=== PATIENT | female | born 1990 ===

== ENCOUNTER 2017-08-06 18:49 | Emergency (ER) | payer OTHER ==
[2017-08-06 19:16] VITALS: PULSE 82; RESP 18; TEMP 98.2; O2SAT 98
--- NOTE | 2017-08-06 20:33 | ED PDOC ---
HPI: Back Time Seen by Provider: 08/06/17 19:17 Chief Complaint (Nursing): Back Pain Chief Complaint (Provider): Back Pain History Per: Patient History/Exam Limitations: no limitations Onset/Duration Of Symptoms: Days (x7) Current Symptoms Are (Timing): Still Present Additional Complaint(s): 27 year old female presents to the emergency department with complaints of non- radiating lower back pain, onset one week. She states that prior to onset, she was doing a lot of heavy lifting. The patient reports that ibuprofen was initially alleviating the pain, but as of this morning, the pain was unresolved with it. Also as of today, she notes that the pain began radiating down her right leg. Denies blunt trauma, incontinence, abdominal pain, pelvic pain, dysuria, hematuria, and a history of back problems. PMD: none provided Past Medical History Reviewed: Historical Data, Nursing Documentation, Vital Signs Vital Signs: Last Vital Signs Temp 98.2 F 08/06/17 19:10 Pulse 82 08/06/17 19:10 Resp 18 08/06/17 19:10 BP Pulse Ox 98 08/06/17 19:10 - Medical History PMH: Asthma - Surgical History Surgical History: No Surg Hx - Family History Family History: States: Unknown Family Hx - Social History Current smoker - smoking cessation education provided: No Alcohol: None Drugs: Denies - Home Medications Home Medications: Ambulatory Orders Medication Instructions Recorded Cyclobenzaprine [Cyclobenzaprine 10 mg PO Q8 PRN #14 tab 08/06/17 HCl] Naproxen [Naprosyn] 500 mg PO BID PRN #14 tab 08/06/17 - Allergies Allergies/Adverse Reactions: Allergies Allergy/AdvReac Type Severity Reaction Status Date / Time No Known Allergies Allergy Verified 08/06/17 19:16 Review of Systems ROS Statement: Except As Marked, All Systems Reviewed And Found Negative Gastrointestinal: Negative for: Abdominal Pain Genitourinary Female: Negative for: Dysuria, Incontinence, Hematuria, Pelvic Pain Musculoskeletal: Positive for: Back Pain (lower, now radiating down right leg), Leg Pain (right leg) Physical Exam - Reviewed Nursing Documentation Reviewed: Yes Vital Signs Reviewed: Yes - Physical Exam Appears: Positive for: In Acute Distress (moderate painful) Gastrointestinal/Abdominal: Positive for: Normal Exam, Soft. Negative for: Tenderness Back: Positive for: Normal Inspection, Other (right sided para lumbar tenderness ). Negative for: L CVA Tenderness Extremity: Positive for: Other (right sided straight leg raise positive at 20 degrees) - ECG O2 Sat by Pulse Oximetry: 98 (RA) Pulse Ox Interpretation: Normal - Radiology X-Ray: Interpreted by Me (LS spine x-ray) X-Ray Interpretation: No Acute Disease Medical Decision Making Medical Decision Making: Initial Impression: lower back pain Time: 19:31 Initial Plan: --ED Urine --Toradol 30mg IM --Valium 10mg PO --LS Spine AP/ Lat On re-evaluation, pt. reports moderate analgesia but pain is still present. Scribe Attestation: Documented by Meli Colvin, acting as a scribe for Rashawn Torres PA-C Provider Scribe Attestation: All medical entries made by the Scribe were at my direction and personally dictated by me. I have reviewed the chart and agree that the record accurately reflects my personal performance of the history, physical exam, medical decision making, and the department course for this patient. I have also personally directed, reviewed, and agree with the discharge instructions and disposition. Disposition - Clinical Impression Clinical Impression: Low back pain - Patient ED Disposition Is Patient to be Admitted: No - Disposition Referrals: [facility] [place] [Outside] [facility] [Outside] Disposition: Routine/Home Disposition Time: 21:00 Condition: IMPROVED Additional Instructions: Follow up with [facility] for further evaluation Return to ED immediately if symptoms worsen Prescriptions: Cyclobenzaprine [Cyclobenzaprine HCl] 10 mg PO Q8 PRN #14 tab PRN Reason: Muscle Spasm Naproxen [Naprosyn] 500 mg PO BID PRN #14 tab PRN Reason: Pain Instructions: Low Back Pain (DC) Forms: [facility] ([place]), [facility] ED School/Work Excuse Print Language: SA[place] T[place]
--- NOTE | 2017-08-07 07:59 | RAD ---
PROCEDURE: Radiographs of the Lumbar Spine. HISTORY: pain COMPARISON: No prior. FINDINGS: BONES: Normal alignment. No listhesis. No fracture. DISC SPACES: Unremarkable. OTHER FINDINGS: None. IMPRESSION: Unremarkable radiographs of the lumbar spine.
== END 2017-08-06 21:00 | disposition home or self-care (01) ==
LOC: H.ER 18:49
DX: M54.5 Low back pain (principal); J45.909 Unspecified asthma, uncomplicated
CPT/HCPCS: 72100; 81025; 96372; 99283; J1885

== ENCOUNTER 2017-08-14 13:13 | Emergency (ER) | payer OTHER ==
[2017-08-14 13:38] VITALS: BP 107/71; PULSE 102; RESP 20; TEMP 97; O2SAT 97
[2017-08-14] MEDS ORDERED: Lidocaine 5% Patch TD STA (14:45)
[2017-08-14] MEDS ORDERED: Oxycodone/Acetaminophen 5/325 mg Tab PO STA (14:45)
[2017-08-14 15:02] LABS: SQUAMOUS EPITHIAL 2 /hpf (0-5); URINE BACTERIA RARE (<OCC); URINE BILIRUBIN NEGATIVE (NEGATIVE); URINE BLOOD LARGE (NEGATIVE); URINE CLARITY SLIGHTY-CLOUDY (Clear); URINE COLOR YELLOW (YELLOW); URINE GLUCOSE (UA) NEG (Normal); URINE LEUKOCYTE ESTERASE NEG Leu/uL (Negative); URINE PROTEIN NEGATIVE (NEGATIVE); URINE UROBILINOGEN 0.2-1.0 mg/dL (0.2-1.0)
[2017-08-14] MEDS ORDERED: Lidocaine 5% Patch TD ONE (15:06)
--- NOTE | 2017-08-14 15:20 | ED PDOC ---
HPI: Back Time Seen by Provider: 08/14/17 13:58 Chief Complaint (Nursing): Back Pain History Per: Patient Additional Complaint(s): Pt. states for 2 weeks she's had progressively worsening lower back pain which radiates slightly into R buttock area. States symptoms began after lifting her daughter and a heavy bag of groceries. Pt. states she was seen in ED last week and prescribed Naproxen/Flexeril which has not provided any relief. Further states today she was attempting to go to the bathroom to urinate but was unable to hold her urine because she had to walk slowly to the bathroom. Denies dysuria , frequency, hematuria, trauma, saddle paresthesias, N/V/D, fever. Past Medical History Reviewed: Historical Data, Nursing Documentation, Vital Signs Vital Signs: Last Vital Signs Temp 97 F L 08/14/17 13:35 Pulse 102 H 08/14/17 13:35 Resp 20 08/14/17 13:35 BP 107/71 08/14/17 13:35 Pulse Ox 97 08/14/17 13:35 - Medical History PMH: Asthma - Surgical History Surgical History: No Surg Hx - Family History Family History: States: No Known Family Hx - Home Medications Home Medications: Ambulatory Orders Medication Instructions Recorded Cyclobenzaprine [Cyclobenzaprine 10 mg PO Q8 PRN #14 tab 08/06/17 HCl] Naproxen [Naprosyn] 500 mg PO BID PRN #14 tab 08/06/17 Lidocaine 5% [Lidoderm] 1 ea TD DAILY PRN #10 patch 08/14/17 Meloxicam [Mobic] 1 - 2 tab PO DAILY PRN #14 tab 08/14/17 Methocarbamol [Robaxin] 1 tab PO TID PRN #15 tab 08/14/17 - Allergies Allergies/Adverse Reactions: Allergies Allergy/AdvReac Type Severity Reaction Status Date / Time No Known Allergies Allergy Verified 08/14/17 13:34 Review of Systems ROS Statement: Except As Marked, All Systems Reviewed And Found Negative Musculoskeletal: Positive for: Back Pain Physical Exam - Physical Exam Appears: Positive for: Non-toxic, In Acute Distress (moderate painful distress) Skin: Positive for: Normal Color, Warm. Negative for: Rash Eye Exam: Positive for: Normal appearance Cardiovascular/Chest: Positive for: Regular Rate, Rhythm Respiratory: Positive for: CNT, Normal Breath Sounds Pulses-Dorsalis Pedis (L): 2+ Pulses-Dorsalis Pedis (R): 2+ Gastrointestinal/Abdominal: Positive for: Normal Exam, Soft. Negative for: Tenderness Back: Positive for: Normal Inspection, Vertebral Tenderness (moderate lumbar tenderness). Negative for: L CVA Tenderness, R CVA Tenderness Extremity: Positive for: Other (SLR positive in R leg at 25-30 degrees). Negative for: Calf Tenderness (b/l) Neurologic/Psych: Positive for: Alert, Oriented, Gait (slow, steady, unassisted) - Laboratory Results Result Diagrams: 08/14/17 15:20 08/14/17 15:20 - ECG O2 Sat by Pulse Oximetry: 97 - Progress ED Course And Treament: Labs, morphine 4mg IV, zofran 4mg PO, valium 5mg PO, MRI LS spine ordered. Case d/w Dr. Lovell who agrees with care. 183 On re-evaluation, pt. sleeping comfortably. Easily arousable. States pt. has improved drastically but is still present. MRI: no acute fx, degenerative changes noted greatest on L5-S1 area Pt. searched [place] [employer] Aware which show no previous narcotic Rx's in the last 2 years. UA: large blood (pt. started her period yesterday evening) Disposition - Clinical Impression Clinical Impression: Low back pain - Patient ED Disposition Is Patient to be Admitted: No - Disposition Referrals: [facility] [Outside] [facility] [Outside] Disposition: Routine/Home Disposition Time: 18:38 Condition: IMPROVED Additional Instructions: Follow up with PMD for further evaluation Return to ED immediately if symptoms worsen Prescriptions: Lidocaine 5% [Lidoderm] 1 ea TD DAILY PRN #10 patch PRN Reason: pain Meloxicam [Mobic] 1 - 2 tab PO DAILY PRN #14 tab PRN Reason: Pain Methocarbamol [Robaxin] 1 tab PO TID PRN #15 tab PRN Reason: Muscle Spasm Instructions: Degenerative Disc Disease (DC), Low Back Pain (DC) Forms: [employer] ([place]), [facility] ED School/Work Excuse Print Language: SINHAL[place]
[2017-08-14 15:34] LABS: BASO # 0.1 K/uL (0.0-0.2); BASO % 1.1 % (0.0-2.0); EOS # 0.4 K/uL (0.0-0.7); EOS % 6.1 % (0.0-4.0); LYMPH # 2.2 K/uL (1.0-4.3); LYMPH % 32.4 % (20.0-40.0); MEAN CELL VOLUME 92.2 fl (81.0-99.0); MEAN CORPUSCULAR HEMOGLOBIN 31.5 pg (27.0-31.0); MEAN CORPUSCULAR HGB CONC 34.1 g/dL (33.0-37.0); MEAN PLATELET VOLUME 8.6 fl (7.2-11.7); MONO # 0.5 K/uL (0.0-0.8); NEUT # 3.6 K/uL (1.8-7.0); NEUT % 52.4 % (50.0-75.0); RBC 3.83 Mil/uL (3.80-5.20); RED CELL DISTRIBUTION WIDTH 13.1 % (11.5-14.5); WHITE BLOOD COUNT 6.8 K/uL (4.8-10.8)
[2017-08-14 15:40] LABS: ALB/GLOB RATIO 1.3 (1.0-2.1); ALBUMIN 4.2 g/dL (3.5-5.0); ALT/SGPT 28 U/L (9-52); AST/SGOT 24 U/L (14-36); BLOOD UREA NITROGEN 11 mg/dl (7-17); CALCIUM 8.9 mg/dL (8.4-10.2); GFR AFRICAN-AMERICAN > 60; GFR NON-AFRICAN AMERICAN > 60
--- NOTE | 2017-08-14 17:48 | MRI ---
PROCEDURE: MR LUMBAR SPINE WITHOUT CONTRAST HISTORY: Low back pain, ? urinary incontinence COMPARISON: Correlation made with prior radiographs of the lumbar spine dated 08/06/2017. . TECHNIQUE: Multiecho multiplanar sequences were performed through the lumbar spine without the use of intravenous contrast. FINDINGS: The at current study reveals no acute compression fractures no retropulsed fragments. The vertebral bodies exhibit normal stature. Vertebral bodies and facets normally aligned. Conus terminates at approximately the L1-L2 level. T12-L1: No disc herniation, spinal canal stenosis or neural foraminal narrowing. L1-2: No disc herniation, spinal canal stenosis or neural foraminal narrowing. L2-3: No disc herniation, spinal canal stenosis or neural foraminal narrowing. L3-4: Adequate disc height and hydration. Minimal broad-based bulge of the posterior annulus also minimally flattens the ventral surface of the thecal sac however the overall central canal appears adequate. . Facets are mildly hypertrophic. Exit foramina adequate. L4-5: There is adequate disc height and hydration. Small broad-based disc bulge results in mild broad-based flattening of the thecal sac however additionally, a tiny more localized focal right parasagittal and slightly central protrusion component focally indents central and right parasagittal aspect of the thecal sac. Mild bilateral lateral recess narrowing. Central canal is also slightly narrowed. Facets are hypertrophic. Exit foramina are adequate despite encroaching disc that extends into the proximal inferior margins of both exit foramina. L5-S1: There is relatively adequate disc height and hydration. Small central and bilateral disc bulge reaches the ventral surfaces of the descending S1 nerve roots. The central canal is slightly narrowed in the AP dimension though commensurate with the smaller diameter of the sacral lower lumbar/sacral thecal sac. Facets are mildly hypertrophic. . Exit foramina adequate. OTHER FINDINGS: None. IMPRESSION: No acute fractures. Minor degenerative spondylosis most notably affecting the L5-S1 and L4-L5 levels as described.
== END 2017-08-14 18:52 | disposition home or self-care (01) ==
LOC: H.ER 13:13
DX: M54.5 Low back pain (principal); N39.0 Urinary tract infection, site not specified
CPT/HCPCS: 72148; 80053; 81003; 81025; 85025; 96374; 99283; J2270